=== PATIENT | female | born 2000 | race Caucasian/White ===

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

== ENCOUNTER 2021-08-24 10:07 | Emergency (ER) | payer MEDICAID ==
[~2021-08-24] VITALS: Ht 160 cm; Wt 79.0 kg
[~2021-08-24 10:07] MED LIST changes: +PHENERGAN25 MG/TAB PO
[2021-08-24] MEDS ORDERED: PRENATA9 PO (10:20)
[2021-08-24 11:47] LABS: URINE BILIRUBIN - DIPSTICK NEGATIVE (NEGATIVE); URINE BLOOD DIPSTICK NEGATIVE (NEGATIVE); URINE COLOR YELLOW; URINE GLUCOSE - DIPSTICK NEGATIVE (NEGATIVE); URINE KETONE NEGATIVE (NEGATIVE); URINE LEUK ESTERASE NEGATIVE (NEGATIVE); URINE PH 6.5 (4.5-8.0); URINE PROTEIN - DIPSTICK NEGATIVE (NEG-TRACE); URINE SPECIFIC GRAVITY 1.015; URINE UROBILINOGEN - DIPSTICK 0.2 E.U./dL (0.2)
[2021-08-24 12:03] LABS: URINE NITRITE - DIPSTICK NEGATIVE (Negative)
[2021-08-24] MEDS ORDERED: AMOXICILLIN500 M2 PO (12:09)
[2021-08-24 12:25] VITALS: BP 119/85
== END 2021-08-24 12:31 | disposition home or self-care (01) ==
LOC: ED 10:07
PROVIDERS: Family Medicine
DX: O99.891 Other specified diseases and conditions complicating pregnancy (principal); M54.50 Low back pain, unspecified; O99.511 Diseases of the respiratory system complicating pregnancy, first trimester; R05.9 Cough, unspecified; R09.89 Other specified symptoms and signs involving the circulatory and respiratory systems; Z3A.11 11 weeks gestation of pregnancy; Z20.822 Contact with and (suspected) exposure to COVID-19

== ENCOUNTER 2022-07-16 09:12 | Emergency (ER) | payer MEDICAID ==
[~2022-07-16] VITALS: Ht 160 cm; Wt 77.0 kg
[2022-07-16] VITALS (7 sets, daily range): BP systolic 108–140; BP diastolic 79–91
[~2022-07-16 09:12] MED LIST changes: +AMOXICILLIN500 M2 PO; +PRENATA9 PO
[2022-07-16 10:19] LABS: BASO% 0.3 % (0-3); EOS% 1.3 % (0-8); HEMATOCRIT 43.6 % (37.0-47.0); HEMOGLOBIN 13.8 g/dl (12.0-16.0); IMMATURE GRANULOCYTES 0.2 % (0.0-5.0); LYMPH% 25.2 % (15-41); MEAN CELL VOLUME 82.9 fL CALC (80.0-100.0); MEAN CORPUSCULAR HGB 26.2 pG CALC (26.0-32.0); MEAN CORPUSCULAR HGB CONC 31.7 g/dL CAL (32.0-36.0); MONO% 12.7 % (2-13); NEUT# 3.71 thou/uL (2.00-7.15); NEUT% 60.3 % (42-76); RED BLOOD COUNT 5.26 mill/uL (4.20-5.60); RED CELL DISTRI WIDTH 15.8 % (11.5-15.5)
[2022-07-16 10:25] LABS: ALBUMIN 4.6 g/dL (3.2-5.0); ALKALINE PHOSPHATASE 123 u/l (38-126); ANION GAP 14 (6-22 (CALC)); BILIRUBIN, TOTAL 0.4 mg/dL (0.02-1.3); BUN 12 mg/dL (7-17); BUN/CREATININE RATIO 16 (12-20 (CALC)); CARBON DIOXIDE 23 mmol/l (22-30); CHLORIDE 105 mmol/l (95-108); CREATININE 0.8 mg/dL (0.5-1.0); GFR FOR AFR.AMER. > 60 ML/MIN (>=60 (CALC)); GFR OTHER RACES > 60 ML/MIN (>=60 (CALC)); POTASSIUM 3.6 mmol/l (3.5-5.1); SGOT/AST 53 u/l (14-36); SODIUM 138 mmol/l (137-146); TOTAL PROTEIN 8.2 g/dL (6.3-8.2)
[2022-07-16 13:16] LABS: URINE BILIRUBIN - DIPSTICK NEGATIVE (NEGATIVE); URINE BLOOD DIPSTICK LARGE (NEGATIVE); URINE COLOR YELLOW; URINE GLUCOSE - DIPSTICK NEGATIVE (NEGATIVE); URINE KETONE NEGATIVE (NEGATIVE); URINE LEUK ESTERASE NEGATIVE (NEGATIVE); URINE PROTEIN - DIPSTICK NEGATIVE (NEG-TRACE); URINE SPECIFIC GRAVITY <=1.005; URINE UROBILINOGEN - DIPSTICK 0.2 E.U./dL (0.2)
[2022-07-16 13:24] LABS: URINE NITRITE - DIPSTICK NEGATIVE (Negative); URINE RBC 25-50 RBC/hpf (0-5)
[2022-07-16] MEDS ORDERED: ZOFRAN4 MG/TAB PO (14:48)
== END 2022-07-16 14:52 | disposition home or self-care (01) ==
LOC: ED 09:12
PROVIDERS: Family Medicine
DX: K52.9 Noninfective gastroenteritis and colitis, unspecified (principal)
CPT/HCPCS: Q9967